=== PATIENT | female | born 1985 | race Caucasian/White ===

== ENCOUNTER 2019-05-22 15:35 | Emergency (ER) | payer OTHER, SELFPAY ==
[2019-05-22 16:03] VITALS: BP 120/84; PULSE 82; RESP 16; TEMP 36.6; O2SAT 100
--- NOTE | 2019-05-22 16:27 | ED.GENADULT ---
HPI - General Adult General Chief complaint: Skin/Abscess/Foreign Body Stated complaint: rash Time Seen by Provider: 05/22/19 16:27 Source: patient and RN notes reviewed Mode of arrival: ambulatory Limitations: no limitations History of Present Illness HPI narrative: 33-year-old female presents with complaints of diffused, red, raised rash to arms, leg, and face for the past 2 days. No treatment. Jigna says she noticed the rash on her hands and arms a day after doing yard work. Denies new changes in personal hygiene products or laundry detergent. No new foods or medications. Rash spread to left side face and is pruritus with a burning sensation. No swelling, bleeding, or drainage. Denies fever, chills, headaches, weakness, fatigue, myalgia, facial swelling, or tongue swelling. Denies chest pain or dyspnea. Tolerating po intake well. Denies cough, rhinorrhea, congestion, sore throat, nausea, vomiting, abdominal pain, and diarrhea. Denies recent traveling. Denies concern for COVID-19 or exposures been home since gczs-[id number] order except for essential household needs and limited working and returned home. Jigna denies being , LMP 2 weeks ago and on control. Some parts of this dictation were generated by voice recognition software and may contain typographical and/or grammatical inaccuracies. Related Data Home Medications Medication Instructions Recorded Confirmed norethindrone-e.estradiol-iron 1 tablet DAILY 05/22/19 05/22/19 [Aurovela Fe 1.5/30 (28)] Allergies Allergy/AdvReac Type Severity Reaction Status Date / Time ENVIRONMENTAL ALLERGENS Allergy Unknown Unknown Uncoded 05/22/19 16:08 Review of Systems Review of Systems: Narrative: CONSTITUTIONAL: Denies fever, chills, sweats. EYES: Denies visual changes, redness, discharge. ENT: Denies rhinorrhea, congestion, sore throat, otalgia. CARDIOVASCULAR: Denies chest pain, palpitations, edema. RESPIRATORY: Denies dyspnea, wheezing, cough. GASTROINTESTINAL: Denies abdominal pain, nausea, vomiting, diarrhea. GENITOURINARY: Denies dysuria, hematuria, abnormal discharge SKIN: Complains of diffused, red, raised rash to arms, leg, and face. Denies drainage. MUSCULOSKELETAL: Denies acute back pain, joint pain, or myalgia. NEUROLOGIC: Denies numbness or focal weakness. PSYCHIATRIC: Denies anxiety or depression. All other systems reviewed & are unremarkable except as noted in HPI and below. [facility] Past Medical History Medical History (Updated 05/23/19 @ 00:00 by Anni Carrillo) No significant past medical history Surgical History Surgical History (Updated 05/22/19 @ 16:38 by OMID Soto) No significant past surgical history Family History Family History (Updated 05/22/19 @ 16:38 by OMID Soto) Father Alive and well Mother Alive and well Social History Social History (Updated 05/22/19 @ 16:39 by OMID Soto) Smoking status: Former smoker Smokeless tobacco user: chewing tobacco Second hand tobacco smoke exposure: Yes Alcohol intake: current Alcohol use details: Occasional Substance use: never Living arrangements: with roommate(s) Occupation/Education: occupation Gender identity (if verbalized by the patient): Female Comments At time of signature, agree with nurse past medical, surgical, social, and family history. There is no relevant family history pertinent to the presenting complaint. Exam Narrative: Exam Narrative: GENERAL: This is a well-nourished, well-developed patient, in no apparent distress. Talking in full sentences without deficit and ambulate with steady gait without dyspnea. HEAD: normocephalic, atraumatic. EYES: PERRL. Sclera clear/white. Vision is grossly intact. THROAT: Mucous membranes moist, posterior pharynx clear. NECK: Neck supple, non-tender without lymphadenopathy, masses or thyromegaly. CARDIOVASCULAR: Regular rate and rhythm without murmurs,
== END 2019-05-22 16:47 | disposition home or self-care (01) ==
PROVIDERS: Emergency Provider Nurse Practitioner Family; PCP Nurse Practitioner Adult Health
DX: L23.7 Allergic contact dermatitis due to plants, except food (principal); F17.220 Nicotine dependence, chewing tobacco, uncomplicated
CPT/HCPCS: 99213; G0463

== ENCOUNTER 2020-06-03 08:11 | Emergency (ER) | payer OTHER, SELFPAY ==
[2020-06-03 08:20] VITALS: BP 136/86; PULSE 79; RESP 16; TEMP 35.9; O2SAT 100
--- NOTE | 2020-06-03 08:25 | ED.EAR ---
HPI - Ear Problem General Chief complaint: Ear Stated complaint: Ears Ringing Source: patient, RN notes reviewed and old records reviewed Mode of arrival: ambulatory Limitations: no limitations History of Present Illness HPI Narrative: 34 year old female who presents to [facility] care with complaints of right ear ringing for 4 to 5 days. Patient states that she has no pain or pressure to her ears, face or any headache discomfort. Patient states she has been taking rvel-egc-[id number] antihistamine and also takes allergy eyedrops daily. Patient denies any fevers, chills, sweats, no sore throat, cough or feelings of congestion. Patient states that she has increase in ringing when she moves her head quickly or at times when he just moves her head, and is worse when she lays down, denies any feelings of dizziness or changes in equilibrium. MD Complaint: other (ringing) Location: right ear Duration: intermittent Relieving factors: nothing Exacerbating factors: position of head Discharge from ear: Reports no Associated symptoms ear: tinnitus Treatment prior to arrival: other (antihistamines and allergy eye drops) Related Data Home Medications Medication Instructions Recorded Confirmed norethindrone-e.estradiol-iron 1 tablet DAILY 05/22/19 05/22/19 [Aurovela Fe 1.5/30 (28)] Allergies Allergy/AdvReac Type Severity Reaction Status Date / Time ENVIRONMENTAL ALLERGENS Allergy Unknown Unknown Uncoded 06/03/20 08:29 Review of Systems Review of Systems: Narrative: CONSTITUTIONAL: Denies fever, chills, or sweats. EYES: Denies visual changes, redness, or discharge. ENT: Denies rhinorrhea, congestion, sore throat, or otalgia.positive for ringing in right ear CARDIOVASCULAR: Denies chest pain, palpitations, or edema. RESPIRATORY: Denies cough or dyspnea. GASTROINTESTINAL: Denies abdominal pain, nausea, vomiting, or diarrhea. GENITOURINARY: Denies dysuria or hematuria. SKIN: Denies rash or itching. MUSCULOSKELETAL: Denies back pain, joint pain, or myalgia. NEUROLOGIC: Denies headache, numbness, or weakness. PSYCHIATRIC: Denies anxiety or depression. All systems reviewed & are unremarkable except as noted in HPI and below PMFSH Past Medical History Medical History (Updated 06/05/20 @ 20:25 by Leann Galicia NP) Seasonal allergies Surgical History Surgical History (Updated 05/22/19 @ 16:38 by OMID Soto) No significant past surgical history Family History Family History (Updated 05/22/19 @ 16:38 by OMID Soto) Father Alive and well Mother Alive and well Social History Social History (Updated 06/05/20 @ 20:26 by Leann Galicia NP) Smoking status: Former smoker Tobacco type: cigarettes Second hand tobacco smoke exposure: Yes Alcohol intake: current Substance use: never Living arrangements: with roommate(s) Gender identity (if verbalized by the patient): Female Comments At time of signature, agree with nursing past medical, surgical, social and family history. There is no relevant family history pertinent to the presenting complaint Exam Narrative: Exam Narrative: GENERAL: Well-appearing, well-nourished, and in no acute distress. HEAD: Normocephalic, atraumatic. EYES: PERRLA and EOMI. ENT: Nares clear, no rhinorrhea or epistaxis. Mucous membranes moist.Right TM dull light reflex,Left TM normal with good light reflex, Throat pink with no lesions or exudates, no tonsil enlargement post nasal drainage noted NECK: Supple.no lymphadenopathy CHEST: Clear to auscultation. No respiratory distress.SAO2 100% on room air HEART: Regular rate and rhythm. No murmur heard. Normal peripheral pulses. ABDOMEN: Soft, nontender, nondistended, normal active bowel sounds. EXTREMITIES: Normal range of motion. No edema. SKIN: Warm, dry, no rash. NEURO: No focal deficits. Alert and oriented x3 Course Vital Signs Vital signs: Vital Signs Temperature 35.9 C L 06/03/20 08:20 Pulse Rate
== END 2020-06-03 08:48 | disposition home or self-care (01) ==
PROVIDERS: Emergency Provider Registered Nurse; PCP Physician Assistant
DX: H93.11 Tinnitus, right ear (principal); H69.91 Unspecified Eustachian tube disorder, right ear; Z87.891 Personal history of nicotine dependence
CPT/HCPCS: 99213; G0463

== ENCOUNTER 2020-06-08 17:14 | Emergency (ER) | payer OTHER, SELFPAY ==
[2020-06-08 17:24] VITALS: BP 147/97; PULSE 96; RESP 16; TEMP 36.9; O2SAT 100
--- NOTE | 2020-06-08 17:30 | ED.GENADULT ---
HPI - General Adult General Chief complaint: Chest Pain Stated complaint: Chest Pressure,Ear Ringing Time Seen by Provider: 06/08/20 17:38 Source: patient and RN notes reviewed Mode of arrival: ambulatory Limitations: no limitations History of Present Illness HPI narrative: 34-year-old female presents with concern for chest pressure and intermittent chest pain, feeling of a heavy heartbeat, intermittent arm and leg tingling. Reports she was being treated for tinnitus with a steroid, Sudafed, she is finishing her steroid pack. She reports her tinnitus symptoms have not improved, and she feels the ringing in the back of her head. She denies any headache, tender headache, weakness in any extremity, syncope, near syncope. She denies any other upper respiratory symptoms, fever, cough, shortness of breath. MD complaint: Chest pressure Related Data Home Medications Medication Instructions Recorded Confirmed norethindrone-e.estradiol-iron 1 tablet DAILY 05/22/19 05/22/19 [Aurovela Fe 1.5/30 (28)] Allergies Allergy/AdvReac Type Severity Reaction Status Date / Time ENVIRONMENTAL ALLERGENS Allergy Unknown Unknown Uncoded 06/03/20 08:29 Review of Systems Review of Systems: Narrative: CONSTITUTIONAL: Denies malaise, chills, sweats, or fever. EYES: Denies visual changes, redness, or discharge. ENT: Denies rhinorrhea, congestion, sinus pain, otalgia or sore throat. Reports tinnitus CARDIOVASCULAR: Reports chest heaviness and pain. Denies palpitations, or edema. RESPIRATORY: Denies cough or dyspnea. GASTROINTESTINAL: Denies abdominal pain, nausea, vomiting, diarrhea, bloody, or mucous stools. SKIN: Denies rash or itching. MUSCULOSKELETAL: Reports arm and leg tingling NEUROLOGIC: Denies numbness, weakness, or headache. PSYCHIATRIC: Reports history of anxiety All systems reviewed & are unremarkable except as noted in HPI and below PMFSH Past Medical History Medical History (Updated 06/08/20 @ 17:51 by Courtney Mcguire NP) Seasonal allergies Surgical History Surgical History (Updated 05/22/19 @ 16:38 by OMID Soto) No significant past surgical history Family History Family History (Updated 05/22/19 @ 16:38 by OMID Soto) Father Alive and well Mother Alive and well Social History Social History (Updated 06/05/20 @ 20:26 by Leann Galicia NP) Smoking status: Former smoker Tobacco type: cigarettes Second hand tobacco smoke exposure: Yes Alcohol intake: current Substance use: never Gender identity (if verbalized by the patient): Female Comments At time of signature, agree with nursing past medical, surgical, social and family history. There is no relevant family history pertinent to the presenting complaint Exam Narrative: Exam Narrative: GENERAL: Well-appearing, well-nourished, and in no acute distress. HEAD: Normocephalic, atraumatic. EYES: PERRLA, conjunctivae clear, and EOMI. No nystagmus. ENT: Mucous membranes moist. NECK: Supple. No lymphadenopathy. No jugular venous distension, thyromegaly, or carotid bruits. Carotids were easily palpable bilaterally. CHEST: No respiratory distress. Clear to auscultation. No bony deformities, no asymmetry. Speaks in full sentences. HEART: Regular rate and rhythm. No murmur heard. Normal peripheral pulses. ABDOMEN: Soft, nontender, nondistended, normal active bowel sounds, no palpable masses. EXTREMITIES: Grossly normal range of motion, no edema, normal strength and sensation. SKIN: Warm, dry, no rash. NEURO: Alert and oriented x3. No focal deficits. PSYCH: Normal mood and affect Course Course Emergency Course: Discussed with patient limited diagnostic capability express care. Discussed transfer to ER, patient reports she does not wish to go to the emergency room. Patient reports she is following up with her primary care provider tomorrow. Patient is aware of, understands and agrees to treatment plan. Anticipatory guidance
--- NOTE | 2020-06-08 17:40 | ECG_ITS ---
Measurements Intervals [place] Rate: 82 P: 62 WI: 122 QRS: 74 QRSD: 85 T: 24 QT: 360 QTc: 422 Interpretive Statements SINUS RHYTHM POSSIBLE LEFT ATRIAL ENLARGEMENT BORDERLINE ECG Electronically Signed On 06-08-2020 19:23:51 CDT by Kris Merlos D.O.
== END 2020-06-08 18:00 | disposition home or self-care (01) ==
PROVIDERS: Emergency Provider Nurse Practitioner; PCP Physician Assistant
DX: F41.9 Anxiety disorder, unspecified (principal); Z87.891 Personal history of nicotine dependence
CPT/HCPCS: 93005; 99213; G0463

== ENCOUNTER 2020-07-31 00:18 | Emergency (ER) | payer OTHER, SELFPAY ==
--- NOTE | ~2020-07-31 | XR_ITS ---
EXAMINATION: XR chest 2V DATE: 07/31/2020 00:42 INDICATION: Chest pressure TECHNIQUE: PA and lateral views of the chest were obtained. COMPARISON: None FINDINGS: The lungs are clear with no focal airspace opacities, pulmonary edema, pleural effusion or pneumothor ax. The cardiomediastinal silhouette is normal. Visualized bones and soft tissues are unremarkable. IMPRESSION: 1. No acute cardiopulmonary disease. Reviewed, dictated and finalized at location A.
--- NOTE | 2020-07-31 00:21 | ECG_ITS ---
Measurements Intervals [place] Rate: 79 P: 53 WI: 132 QRS: 66 QRSD: 89 T: 28 QT: 365 QTc: 418 Interpretive Statements SINUS RHYTHM NORMAL ECG Electronically Signed On 07-31-2020 6:24:33 CDT by Kris Merlos D.O.
[2020-07-31 00:28] VITALS: BP 139/96; PULSE 80; RESP 14; TEMP 37; O2SAT 100
--- NOTE | 2020-07-31 00:36 | PC.NURSE ---
Pt to [facility] via stretcher at this time.
--- NOTE | 2020-07-31 00:38 | ED.CHESTPAIN ---
HPI - Chest Pain General Chief Complaint: Chest Pain Stated Complaint: chest pressure, enlarged atrium Time Seen by Provider: 07/31/20 00:35 Source: patient Mode of arrival: ambulatory Limitations: no limitations History of Present Illness HPI narrative: Patient is a 35-year-old female complaining of heart pounding accompanied by nausea and tingling of bilateral upper extremities started prior to arrival after waking from her sleep. Patient states the heart pounding, tingling of her upper extremities, been going on for months . Patient denies any chest pain, shortness of breath, abdominal pain, vomiting, diaphoresis, fever or chills. Patient denies any speech or visual disturbance, focal weakness or numbness, or unsteady gait. Related Data Home Medications Medication Instructions Recorded Confirmed norethindrone-e.estradiol-iron 1 tablet DAILY 05/22/19 05/22/19 [Aurovela Fe 1.5/ (28)] Allergies Allergy/AdvReac Type Severity Reaction Status Date / Time ENVIRONMENTAL ALLERGENS Allergy Unknown Unknown Uncoded 06/03/20 08:29 Review of Systems Review of Systems: All systems reviewed & are unremarkable except as noted in HPI and below Constitutional: Constitutional: Denies body ache(s), Denies chills, Denies excessive sweating, Denies fatigue, Denies fever(s), Denies headache(s), Denies lethargy, Denies malaise, Denies weakness and Denies weight loss Eyes: Eyes: Denies blurry vision, Denies change in vision and Denies loss of vision ENT: Denies dizziness, Denies ear discharge, Denies headache(s), Denies lip swelling, Denies epistaxis, Denies nasal congestion, Denies neck pain, Denies throat swelling and Denies tongue swelling Cardiovascular: Cardiovascular: Denies chest pain, Denies chest pain at rest, Denies chest pain with activity, Denies diaphoresis, Denies rapid heart rate, Denies edema, Denies irregular heart rhythm, Denies lightheadedness, Denies palpitations, Denies dyspnea and Denies dyspnea on exertion Respiratory: Respiratory: Denies chest congestion, Denies cough, Denies hemoptysis, Denies dyspnea and Denies dyspnea on exertion Gastrointestinal: Gastrointestinal: Denies abdominal pain, Denies melena, Denies hematochezia, Denies diarrhea, Denies nausea, Denies vomiting and Denies hematemesis Musculoskeletal: Musculoskeletal: Denies abnormal gait, Denies deformity, Denies joint swelling, Denies limited range of motion, Denies neck pain and Denies numbness Neurologic: Denies Abnormal speech present, Denies abnormal gait, Denies confusion, Denies dizziness, Denies headache(s), Denies focal weakness, Denies loss of vision, Denies numbness, Denies Other visual disturbances, Denies Sensory deficit (Neuro) and Denies weakness Psychiatric: Psychiatric: Denies confusion, Denies depression, Denies auditory hallucinations, Denies homicidal ideation and Denies suicidal ideation Endocrine: Endocrine: Denies cold intolerance, Denies excessive sweating, Denies fatigue, Denies heat intolerance and Denies palpitations Hematologic/Lymphatic: Hematologic/Lymphatic: Denies easy bleeding and Denies easy bruising Allergic/Immunologic: Allergic/Immunologic: Denies lip swelling, Denies throat swelling and Denies tongue swelling PMFSH Past Medical History Medical History Seasonal allergies Surgical History Surgical History No significant past surgical history Family History Family History Father Alive and well Mother Alive and well Social History Social History Smoking status: Former smoker Tobacco type: cigarettes Second hand tobacco smoke exposure: Yes Alcohol intake: current Substance use: never Gender identity (if verbalized by the patient): Female Exam Const: General: cooperativ
[2020-07-31 00:56] LABS: Basophils Absolute Auto 0.1 K/mm3 (0.0-0.1); Basophils Percent Auto 0.8 % (0.2-1.2); Eosinophils Absolute Auto 0.3 K/mm3 (0-0.3); Eosinophils Percent Auto 4.5 % (0-4.4); Hematocrit 39.7 % (37.0-47.0); Hemoglobin 12.9 g/dL (12.0-15.0); Immature Granulocyte Absolute 0.01 K/mm3 (0.00-0.031); Immature Granulocyte Percent A 0.2 % (0-0.5); Lymphocytes Percent Auto 33.3 % (18.3-44.2); Mean Corpuscular HGB Conc 32.5 g/dl (32-36); Mean Corpuscular Hemoglobin 30.2 pg (26-34); Mean Platelet Volume 10.2 fl (7.4-10.4); Monocytes Absolute Auto 0.6 K/mm3 (0.1-0.6); Monocytes Percent Auto 8.9 % (2.6-8.5); Neutrophils Absolute Auto 3.5 K/mm3 (1.3-6.7); Neutrophils Percent Auto 52.3 % (45.5-73.1); Platelet Count Result 219 k/mm3 (150-375); Red Blood Count 4.27 M/mm3 (4.2-5.4); Red Cell Distribution Width 12.5 % (11.5-14.5); White Blood Count 6.6 K/mm3 (4.5-10.0)
[2020-07-31 01:07] LABS: Anion Gap 8 mmol/L (8-16); Blood Urea Nitrogen 16 mg/dL (7-17); Calcium 8.7 mg/dL (8.4-10.2); Carbon Dioxide 24 mmol/L (22-30); Chloride 107 mmol/L (98-107); Estimated CRCL calculation 110 ml/min; Estimated Glomerular Filt Rate > 60; Glucose 114 mg/dL (65-105); Potassium 3.6 mmol/L (3.4-5.0); Sodium 139 mmol/L (137-145)
[2020-07-31 01:11] LABS: INR 0.9
[2020-07-31 01:19] LABS: Troponin I < 0.012 ng/mL (0.000-0.034)
[2020-07-31 01:21] LABS: D Dimer < 0.22 ug/mL (<0.48)
[2020-07-31 01:54] VITALS: BP 121/77; PULSE 70; RESP 16; O2SAT 99
== END 2020-07-31 01:52 | disposition home or self-care (01) ==
PROVIDERS: Emergency Provider Emergency Medicine; PCP Physician Assistant
DX: R07.89 Other chest pain (principal); Z87.891 Personal history of nicotine dependence
CPT/HCPCS: 36415; 71046; 80048; 84484; 85025; 85380; 85610; 85730; 93005; 99284

== ENCOUNTER 2022-03-03 09:54 | Emergency (ER) | payer BC, SELFPAY ==
--- NOTE | 2022-03-03 09:55 | ED.URI ---
HPI - URI/Sore Throat General Chief Complaint: Upper Respiratory Infection Stated Complaint: sore throat /r ear pain Time Seen by Provider: 03/03/22 09:55 Source: patient Mode of arrival: ambulatory Limitations: no limitations History of Present Illness HPI Narrative: Jigna is a 36-year-old female patient presenting to the clinic today with complaints of sore throat, nasal congestion, right ear pain x3 days. She reports symptoms began on Tuesday. She denies any fever or chills. Is having some clear nasal drainage but states that is green in the morning. MD elicited complaint: sore throat and nasal congestion Related Data Home Medications Medication Instructions Recorded Confirmed bupropion HCl 150 mg 24 hr tablet, mg PO 03/03/22 extended release dextroamphetamine-amphetamine 10 03/03/22 mg tablet norethindrone 1.5 mg-ethinyl tablet 03/03/22 03/03/22 estradiol 30 mcg(21)/iron 75 mg(7) tablet (Junel FE 1.5/30 (28)) Allergies Allergy/AdvReac Type Severity Reaction Status Date / Time ENVIRONMENTAL ALLERGENS Allergy Unknown Unknown Uncoded 03/03/22 10:06 Review of Systems Review of Systems: Pertinent positives per HPI. Patient denies any fever, chills, rash, headache, visual changes, dizziness, shortness of breath, chest pain, palpitations, nausea, vomiting, diarrhea, constipation, abdominal pain, or any urinary issues. [facility] Past Medical History Medical History Seasonal allergies Surgical History Surgical History No significant past surgical history Family History Family History Father Alive and well Mother Alive and well Social History Social History Smoking status: Former smoker Tobacco type: cigarettes Second hand tobacco smoke exposure: Yes Alcohol intake: current Alcohol use details: Occasional Substance use: never Living arrangements: with roommate(s) Occupation/Education: occupation Gender identity (if verbalized by the patient): Female Comments At the time of my signature, I reviewed and agree with the nursing past medical, surgical, social, and family history. There is no relevant family history pertinent to the patient complaint. Exam Narrative: General: Well-developed, well nourished, in no apparent distress Head: Normocephalic, atraumatic Eyes: Pupils equally round and reactive to light bilaterally, EOM intact, sclera and conjunctive clear, no discharge, lids normal Ears: TMs intact, clear, mild bulging, ear canals clear, no drainage, grossly hearing normal. Nose: Nares patent, clear nasal discharge, mild inflammation, no sinus tenderness. Mouth: Oral pharynx without lesions or masses, good dentition, MMM. Oropharynx red Neck: Supple, trachea midline, no enlargement of anterior or posterior cervical nodes, no thyroid masses or goiter palpable. Cardio: Regular rate and rhythm, s1 and s2 normal, no murmur appreciated. Resp: Clear to auscultation bilaterally, no rhonchi, rales, wheezing or rubs Course Course Emergency Course: Portions of this record may have been created with voice recognition software. Level of Care: Express Care Visit Vital Signs Vital signs: Vital Signs Temperature 36.7 C 03/03/22 10:03 Pulse Rate 99 03/03/22 10:03 Respiratory Rate 16 03/03/22 10:03 Blood Pressure 121/75 03/03/22 10:03 Pulse Oximetry 99 03/03/22 10:03 Oxygen Delivery Room Air 03/03/22 10:03 Temperature 36.7 C 03/03/22 10:07 Pulse Rate 99 03/03/22 10:07 Respiratory Rate 16 03/03/22 10:07 Blood Pressure 121/75 03/03/22 10:07 Pulse Oximetry 99 03/03/22 10:07 Oxygen Delivery Room Air 03/03/22 10:07 Vital signs reviewed MDM - URI/Sore Throat MDM Narrative Medical
[2022-03-03 10:03] VITALS: BP 121/75; PULSE 99; RESP 16; TEMP 36.7; O2SAT 99
[2022-03-03 10:07] VITALS: BP 121/75; PULSE 99; RESP 16; TEMP 36.7; O2SAT 99
== END 2022-03-03 10:28 | disposition home or self-care (01) ==
PROVIDERS: Emergency Provider Nurse Practitioner Family
DX: J02.0 Streptococcal pharyngitis (principal); Z87.891 Personal history of nicotine dependence
CPT/HCPCS: 87880; 99213; G0463

== ENCOUNTER 2023-02-03 09:52 | Emergency (ER) | payer BC, SELFPAY ==
--- NOTE | ~2023-02-03 | CT_ITS ---
EXAMINATION: CT brain wo con, CT facial bones wo con DATE: 02/03/2023 11:37 INDICATION: Head injury TECHNIQUE: 1. Computed tomography (CT) of the head was performed without intravenous contrast. Sagittal and malachi nal reconstructions were obtained. The mA was adjusted according to patient size. Iterative reconstru ction technique was employed. The dose-length product was 681.0 mGy-cm. 2. CT of the facial bones and maxillofacial region was performed without intravenous contrast. Sagitt al and coronal reconstructions were obtained. Automated exposure control and iterative reconstruction technique were employed. The dose-length product was 326.97 mGy-cm. COMPARISON: None. FINDINGS: Head CT: No calvarial fracture. No acute intracranial hemorrhage, acute infarction or abnormal extra axial flu id collection. Ventricles are normal and symmetric. No mass/mass effect. Maxillofacial CT: No maxillofacial fractures. Specifically the zygomatic arches, mandible, nasal bones and glez of the orbits and paranasal sinuses are all intact. The orbits are normal. Nasal septum is midline. The par anasal sinuses are normal. There is a dental Mitra near the combined of the right maxillary canine la rge dental Mitra involving the right mandibular first molar where there is been prior root canal with periapical erosions. The facial soft tissues tissues are unremarkable. IMPRESSION: 1. No calvarial or maxillofacial fractures. 2. Normal brain. No acute intracranial process. 3. Dental disease. Reviewed, dictated and finalized at location A. [employer]IFICATION ENGINEER IMPRESSION: 1. No calvarial or maxillofacial fractures. 2. Normal brain. No acute intracranial process. 3. Dental disease.
[2023-02-03 10:06] VITALS: BP 135/77; PULSE 86; RESP 16; TEMP 36.5; O2SAT 99
[2023-02-03 11:15] VITALS: O2SAT 99
--- NOTE | 2023-02-03 11:34 | ED.GENADULT ---
HPI - General Adult General Chief complaint: Head Injury Stated complaint: hi/nausea Time Seen by Provider: 02/03/23 11:18 History of Present Illness HPI narrative: 37-year-old female presenting to the emergency department for evaluation after being struck in the head with a hockey puck at last night hockey game. Patient reports she was struck in the right taoism. Patient denies any loss of consciousness. Patient did feel fine after the head injury but then developed some nausea and vomiting on the way home after the game. Related Data Home Medications Medication Instructions Recorded Confirmed bupropion HCl 150 mg 24 hr tablet, mg PO 03/03/22 extended release dextroamphetamine-amphetamine 10 03/03/22 mg tablet norethindrone 1.5 mg-ethinyl tablet 03/03/22 03/03/22 estradiol 30 mcg(21)/iron 75 mg(7) tablet (Junel FE 1.07/06 (28)) Allergies Allergy/AdvReac Type Severity Reaction Status Date / Time ENVIRONMENTAL ALLERGENS Allergy Unknown Unknown Uncoded 03/03/22 10:06 Review of Systems Review of Systems: All systems reviewed & are unremarkable except as noted in HPI and below PMFSH Past Medical History Medical History Seasonal allergies Surgical History Surgical History No significant past surgical history Family History Family History Father Alive and well Mother Alive and well Social History Social History Smoking status: Former smoker Tobacco type: cigarettes Second hand tobacco smoke exposure: Yes Alcohol intake: current Alcohol use details: Occasional Substance use: never Living arrangements: with roommate(s) Occupation/Education: occupation Gender identity (if verbalized by the patient): Female Exam Narrative: APPEARANCE: Well appearing, no pain, no distress, well-nourished. HEAD: normocephalic, tenderness to her right taoism EYES: PERRLA/EOMI, conjunctivae clear. NOSE: Normal no drainage EARS:TMS clear with good light reflex. THROAT: Pharynx clear, no exudate. NECK: Supple. No adenopathy, no masses. RESPIRATORY: Airway patent, respirations nonlabored. Clear to auscultation bilaterally, no rales, rhonchi, wheezing. CARDIOVASCULAR: Regular rate and rhythm without murmurs rubs or gallops. ABDOMINAL: Soft, nontender, nondistended, normal bowel sounds MUSCULOSKELETAL: Moves all extremities. Strength/ROM intact, No edema, No calf tenderness. NEURO: Alert. Cranial nerves II through XII intact. Grossly intact SKIN: Warm, dry. Normal Color Course Course Emergency Course: 37-year-old female presenting to the ED for evaluation for a head injury. Head and facial CT were negative for acute finding. Patient had a normal neuro exam. Patient was updated on the results of her imaging. Patient was comfortable the plan for discharge and close follow Vital Signs Vital signs: Vital Signs Temperature 97.7 F 02/03/23 10:06 Pulse Rate 86 02/03/23 10:06 Respiratory Rate 16 02/03/23 10:06 Blood Pressure 135/77 02/03/23 10:06 Pulse Oximetry 99 02/03/23 10:06 Temperature 97.7 F 02/03/23 10:06 Pulse Rate 86 02/03/23 10:06 Respiratory Rate 16 02/03/23 10:06 Blood Pressure 135/77 02/03/23 10:06 Pulse Oximetry 99 02/03/23 11:15 Oxygen Delivery Room Air 02/03/23 11:15 Medical Decision Making Differential Diagnosis Differential Diagnosis: Skull fracture, intracranial abnormality, concussion Vital Signs Vital Signs: Vital Signs Temperature 97.7 F 02/03/23 10:06 Pulse Rate 86 02/03/23 10:06 Respiratory Rate 16 02/03/23 10:06 Blood Pressure 135/77 02/03/23 10:06 Pulse Oximetry 99 02/03/23 10:06 Temperature 97.7 F 02/03/23 10:06 Pulse Rate 86 02/03/23 10:
== END 2023-02-03 12:34 | disposition home or self-care (01) ==
PROVIDERS: Emergency Provider Emergency Medicine
DX: S09.90XA Unspecified injury of head, initial encounter (principal); K02.9 Dental caries, unspecified; Z87.891 Personal history of nicotine dependence; W21.89XA Striking against or struck by other sports equipment, initial encounter
CPT/HCPCS: 70450; 70486; 99284

== ENCOUNTER 2023-02-14 15:36 | Emergency (ER) | payer BC, SELFPAY ==
[2023-02-14 15:52] VITALS: BP 115/75; PULSE 86; RESP 16; TEMP 36.4; O2SAT 100
--- NOTE | 2023-02-14 15:59 | ED.URI ---
HPI - URI/Sore Throat General Chief Complaint: Upper Respiratory Infection Stated Complaint: cough,sore throat Time Seen by Provider: 02/14/23 15:59 Source: patient Mode of arrival: ambulatory Limitations: no limitations History of Present Illness HPI Narrative: 37-year-old female presents with complaint of nasal congestion, cough, fatigue, body aches for the past 3 days. Afebrile. Denies nausea vomiting diarrhea. Taking [id number] DayQuil NyQuil to treat symptoms. All systems reviewed and negative except as noted above. Related Data Home Medications Medication Instructions Recorded Confirmed dextroamphetamine-amphetamine 10 10 mg PO DAILY 03/03/22 02/14/23 mg tablet Allergies Allergy/AdvReac Type Severity Reaction Status Date / Time ENVIRONMENTAL ALLERGENS Allergy Unknown Unknown Uncoded 02/14/23 16:09 Review of Systems Review of Systems: CONSTITUTIONAL: Denies fever, chills, or sweats. reports fatigue. EYES: Denies visual changes, redness, or discharge. ENT: Reports rhinorrhea, congestion, sore throat. Denies otalgia. CARDIOVASCULAR: Denies chest pain, palpitations, or edema. RESPIRATORY: Reports cough. Denies dyspnea. GASTROINTESTINAL: Denies abdominal pain, nausea, vomiting, or diarrhea. GENITOURINARY: Denies dysuria or hematuria. SKIN: Denies rash or itching. MUSCULOSKELETAL: Denies back pain, joint pain, or myalgia. NEUROLOGIC: Denies headache, numbness, or weakness. PSYCHIATRIC: Denies anxiety or depression. All other systems reviewed are negative, except as documented in HPI. [facility] Past Medical History Medical History Seasonal allergies Surgical History Surgical History No significant past surgical history Family History Family History Father Alive and well Mother Alive and well Social History Social History Smoking status: Former smoker Tobacco type: cigarettes Second hand tobacco smoke exposure: Yes Alcohol intake: current Alcohol use details: Occasional Substance use: never Living arrangements: with roommate(s) Occupation/Education: occupation Gender identity (if verbalized by the patient): Female Comments At time of signature, agree with nursing past medical, surgical, social and family history. There is no relevant family history pertinent to the presenting complaint. Exam Narrative: GENERAL: This is a well-nourished, well-developed patient, in no apparent distress. HEAD: normocephalic, atraumatic. EYES: PERRL. Sclera clear/white. Vision is grossly intact. EARS: External ears normal, auditory canals clear and without drainage, TMs normal without perforation. Hearing grossly intact. NOSE: External nose normal with no obvious nasal discharge, nares without redness, no rhinorrhea. THROAT: Mucous membranes moist, posterior pharynx clear. NECK: Neck supple, non-tender without lymphadenopathy, masses or thyromegaly. CARDIOVASCULAR: Regular rate and rhythm without murmurs, gallops, or rubs. RESPIRATORY: Clear to auscultation. Breath sounds equal bilaterally. No wheezes, rales, or rhonchi. SKIN: warm, Dry, intact with no suspicious lesions or rash, good texture and turgor. NEURO: awake, alert, and oriented to person, place and time. There were no obvious focal neurologic abnormalities. EXTREMITIES: No joint tenderness, effusion, or edema noted. Course Course Level of Care: Express Care Visit Vital Signs Vital signs: Vital Signs Temperature 36.4 C 02/14/23 15:52 Pulse Rate 86 02/14/23 15:52 Respiratory Rate 16 02/14/23 15:52 Blood Pressure 115/75 02/14/23 15:52 Pulse Oximetry 100 02/14/23 15:52 Oxygen Delivery Room Air 02/14/23 15:52 Temperature 36.4 C 02/14/23 15:
== END 2023-02-14 16:28 | disposition home or self-care (01) ==
PROVIDERS: Emergency Provider Nurse Practitioner Family
DX: J10.1 Influenza due to other identified influenza virus with other respiratory manifestations (principal); Z20.822 Contact with and (suspected) exposure to COVID-19; Z87.891 Personal history of nicotine dependence
CPT/HCPCS: 87081; 87426; 87804; 87880; 99213; C9803; G0463